=== PATIENT | female | born 1985 | race African-American/Black ===

== ENCOUNTER 2017-07-11 18:37 | Emergency (ER) | payer OTHER ==
[~2017-07-11] VITALS: Ht 170.2 cm; Wt 113.4 kg
[~2017-07-11 18:37] MED LIST: IBUPROFEN 600600 M1 PO
[2017-07-11] MEDS ORDERED: AZITHROMYCIN 2250 MG PO (19:49)
[2017-07-11] MEDS ORDERED: TESSALON PERLE100 MG PO (19:49)
[2017-07-11] MEDS ORDERED: ALBUTEROL2.5 MG/31 INH (19:49)
[2017-07-11 20:41] VITALS: BP 137/92
== END 2017-07-11 20:42 | disposition home or self-care (01) ==
LOC: ER 18:37
DX: J18.9 Pneumonia, unspecified organism (principal); F17.210 Nicotine dependence, cigarettes, uncomplicated

== ENCOUNTER 2017-07-16 19:16 | Inpatient (IN) | payer OTHER ==
[~2017-07-16] VITALS: Ht 170.2 cm; Wt 125.3 kg
--- NOTE | ~2017-07-16 | EKG ---
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 : 1985 Requested By: Matilda Hargrove Order Number: [id number] MD: Raghavendra Hightower Measurements Intervals [place] Rate: 113 P: 68 UT: 160 QRS: 59 QRSD: 80 T: 2 QT: 320 QTc: 439 Interpretive Statements Sinus tachycardia Borderline T wave abnormalities Baseline wander in lead(s) I,III,aVR,aVL,aVF,V1,V2,V3,V4,V5,V6 No previous ECG available for comparison Electronically Signed On 07-18-2017 9:03:17 TENT WORKER by Raghavendra Hightower [email or web address] <ELECTRONICALLY SIGNED> By: Raghavendra Hightower MD, [facility] 07/18/17 0903 [id number] 2317 Raghavendra Hightower MD, [facility] /EPI
[~2017-07-16 19:16] MED LIST changes: +ALBUTEROL2.5 MG/31 INH; +AZITHROMYCIN 2250 MG PO; +TESSALON PERLE100 MG PO
[2017-07-16 19:17] VITALS: BP 171/132
[2017-07-16 19:47] LABS: BE(vivo) -2.7 mmol/L (-2 to +3); HCO3 20.5 mmol/L (22.0-26.0); PCO2 31.5 mmHg (35.0-45.0); PO2 57.5 mmHg (80.0-100.0); pH 7.432 (7.360-7.450); sO2 91.1 % (92.0-98.0)
[2017-07-16 20:07] LABS: HEMATOCRIT 40.3 % (37.0-47.0); HEMOGLOBIN 13.7 gm/dL (12.0-15.0); MCH 26.1 pg (26.0-34.0); MCHC 33.9 g/dL (28.0-37.0); MCV 76.8 fL (80.0-100.0); RBC 5.24 mil/uL (4.20-5.00); WBC 11.2 thou/uL (4.0-11.0)
[2017-07-16 20:17] LABS: CALCIUM 9.6 mg/dL (8.5-10.1); POTASSIUM 3.9 mmol/L (3.5-5.1)
[2017-07-16 20:23] LABS: ALBUMIN 3.9 g/dL (3.4-5.0); TOTAL BILIRUBIN 0.3 mg/dL (<0.1-1.0); TOTAL PROTEIN 7.8 g/dL (6.4-8.2)
[2017-07-16 23:55] VITALS: BP 131/80
[2017-07-17 04:30] VITALS: BP 139/95
[2017-07-17 05:37] LABS: HEMATOCRIT 40.4 % (37.0-47.0); HEMOGLOBIN 13.6 gm/dL (12.0-15.0); MCH 26.4 pg (26.0-34.0); MCHC 33.6 g/dL (28.0-37.0); MCV 78.6 fL (80.0-100.0); RBC 5.15 mil/uL (4.20-5.00); RDW 14.9 % (10.5-14.5); WBC 10.7 thou/uL (4.0-11.0)
[2017-07-17 07:05] VITALS: BP 142/99
[2017-07-17 11:05] VITALS: BP 125/78
[2017-07-17 15:00] VITALS: BP 133/81
[2017-07-17 20:20] VITALS: BP 139/97
[2017-07-18 04:09] VITALS: BP 148/91
[2017-07-18 08:16] VITALS: BP 133/93
[2017-07-18] MEDS ORDERED: PREDNISONE 10 M10 MG PO (11:32)
[2017-07-18] MEDS ORDERED: LEVAQUIN 750 M750 MG PO (11:32)
[2017-07-18 11:50] VITALS: BP 133/93
[2017-07-18 11:52] VITALS: BP 133/93
[2017-07-20 23:07] LABS: ADENOVIRUS Negative (Negative); INFLUENZA A Negative (Negative); INFLUENZA B Negative (Negative); METAPNEUMOVIRUS Negative (Negative); PARAINFLUENZA 1 Negative (Negative); PARAINFLUENZA 2 Negative (Negative); PARAINFLUENZA 3 Negative (Negative); RHINOVIRUS Negative (Negative); RSV A Negative (Negative); RSV B Negative (Negative)
== END 2017-07-18 13:20 | disposition home or self-care (01) | DRG 189 ==
LOC: ER 19:16 → 2N 22:52 → EROBS 22:52 → 2N 23:38 → ENTRNSPT 07-18 13:15 → EDTRNSPTSTS 07-18 13:17 → 2N 07-18 13:20
PROVIDERS: Internal Medicine Pulmonary Disease; Nurse Practitioner Family; Physician Assistant
DX: J96.01 Acute respiratory failure with hypoxia (principal); F17.210 Nicotine dependence, cigarettes, uncomplicated; F15.10 Other stimulant abuse, uncomplicated; E66.01 Morbid (severe) obesity due to excess calories; J20.9 Acute bronchitis, unspecified; Z82.5 Family history of asthma and other chronic lower respiratory diseases; Z68.41 Body mass index [BMI] 40.0-44.9, adult; Z82.49 Family history of ischemic heart disease and other diseases of the circulatory system; Z79.899 Other long term (current) drug therapy; Z83.3 Family history of diabetes mellitus; Z84.89 Family history of other specified conditions; Z71.6 Tobacco abuse counseling; Z23 Encounter for immunization
CPT/HCPCS: 10081

== ENCOUNTER 2017-09-08 21:34 | Emergency (ER) | payer OTHER ==
[~2017-09-08] VITALS: Ht 170.2 cm; Wt 117.9 kg
--- NOTE | ~2017-09-08 | EKG ---
[address] [address] ELECTROCARDIOGRAM REPORT Name: ISHMAELCHIDIANA ROONEY Room #: DEP [facility]#: [id number] Admission: 09/08/17 Attend Phys: Discharge: 09/09/17 Date of : 85 Report #: [id number] THIS REPORT FOR: //name// [facility] Test Date: 2017-09-08 Test Time: 21:46:35 Pat Name: CHUN QUIÑONES Department: Room: Gender: F Director Of Pediatric Rehabilitation: JAMEL : 1985 Requested By: Amber Ogden Order Number: [id number] MD: Gustavo Duenas Measurements Intervals [place] Rate: 71 P: 36 HI: 152 QRS: 9 QRSD: 89 T: 9 QT: 375 QTc: 408 Interpretive Statements Sinus rhythm Nonspecific T abnormalities, anterior leads Compared to ECG 07/17/2017 23:17:38 Sinus tachycardia no longer present T-wave abnormality still present Electronically Signed On 09-09-2017 8:51:21 CDT by Gustavo Duenas [email or web address] <ELECTRONICALLY SIGNED> By: Gustavo Duenas MD 09/09/17 0851 45 45 Gustavo Duenas MD /IVANIA
[~2017-09-08 21:34] MED LIST changes: +LEVAQUIN 750 M750 MG PO; +PREDNISONE 10 M10 MG PO
[2017-09-08] MEDS ORDERED: MUCINEX600 MG PO (21:41)
[2017-09-08 22:25] LABS: ABSOLUTE NEUTROPHILS 6.5 thou/uL (1.4-8.2); BASOPHILS 0.8 % (0.0-2.0); EOSINOPHILS 1.4 % (0.0-3.0); HEMOGLOBIN 13.2 gm/dL (12.0-15.0); LYMPHOCYTES 15.5 % (24.0-44.0); MCH 26.3 pg (26.0-34.0); MCHC 33.9 g/dL (28.0-37.0); MCV 77.6 fL (80.0-100.0); MONOCYTES 6.3 % (1.0-8.0); PLATELET COUNT 235 thou/uL (150-400); RBC 5.03 mil/uL (4.20-5.00); RDW 14.8 % (10.5-14.5); WBC 8.5 thou/uL (4.0-11.0)
[2017-09-08 22:34] LABS: ANION GAP 6 mmol/L (7-16); BUN 10 mg/dL (7-18); CALCIUM 9.3 mg/dL (8.5-10.1); CHLORIDE 106 mmol/L (98-107); CO2 26 mmol/L (21-32); CREATININE 0.9 mg/dL (0.6-1.0); GLUCOSE 114 mg/dL (74-106); POTASSIUM 3.7 mmol/L (3.5-5.1); SODIUM 138 mmol/L (136-145)
[2017-09-08 22:43] LABS: TROPONIN-I < 0.04 ng/mL (<0.06)
== END 2017-09-09 00:05 | disposition home or self-care (01) ==
LOC: ER 21:34
PROVIDERS: Emergency Medicine
DX: R07.89 Other chest pain (principal); F17.210 Nicotine dependence, cigarettes, uncomplicated

== ENCOUNTER 2019-02-24 21:12 | Emergency (ER) | payer OTHER ==
[~2019-02-24] VITALS: Ht 172.7 cm; Wt 127.0 kg
[~2019-02-24 21:12] MED LIST changes: +MUCINEX600 MG PO
[2019-02-24 21:51] LABS: URINE BILIRUBIN NEGATIVE (Negative); URINE BLOOD NEGATIVE (Negative); URINE CLARITY CLEAR; URINE COLOR YELLOW; URINE GLUCOSE-RANDOM* NEGATIVE (Negative); URINE KETONES NEGATIVE (Negative); URINE LEUKOCYTES-REFLEX NEGATIVE (Negative); URINE NITRITE-REFLEX NEGATIVE (Negative); URINE PROTEIN (DIPSTICK) NEGATIVE (Negative); URINE SPECIFIC GRAVITY 1.015 (1.005-1.035); URINE UROBILINOGEN 0.2 E.U./dl (0.2-1.0)
[2019-02-24 22:15] LABS: ABSOLUTE NEUTROPHILS 7.6 thou/uL (1.4-8.2); BASOPHILS 0.4 % (0.0-2.0); EOSINOPHILS 0.9 % (0.0-3.0); HEMATOCRIT 37.9 % (37.0-47.0); HEMOGLOBIN 12.5 gm/dL (12.0-15.0); LYMPHOCYTES 19.1 % (24.0-44.0); MCH 25.3 pg (26.0-34.0); MCHC 33.1 g/dL (28.0-37.0); MCV 76.6 fL (80.0-100.0); PLATELET COUNT 276 thou/uL (150-400); POLYS 72.6 % (36.0-66.0); RBC 4.94 mil/uL (4.20-5.00); WBC 10.5 thou/uL (4.0-11.0)
[2019-02-24 22:28] LABS: CALCIUM 9.1 mg/dL (8.5-10.1); CREATININE 0.9 mg/dL (0.6-1.0); POTASSIUM 3.7 mmol/L (3.5-5.1)
[2019-02-24 22:34] LABS: ALBUMIN 3.6 g/dL (3.4-5.0); TOTAL BILIRUBIN 0.3 mg/dL (<0.1-1.0); TOTAL PROTEIN 7.3 g/dL (6.4-8.2)
[2019-02-25] MEDS ORDERED: BENTYL 10 MG CA10 M1 PO (01:09)
[2019-02-25] MEDS ORDERED: ONDANSETRON HCL4 M2 PO (01:09)
[2019-02-25 01:31] VITALS: BP 140/70
== END 2019-02-25 01:30 | disposition home or self-care (01) ==
LOC: ER 21:12
PROVIDERS: Emergency Medicine
DX: R10.11 Right upper quadrant pain (principal); R11.2 Nausea with vomiting, unspecified; F17.210 Nicotine dependence, cigarettes, uncomplicated